=== PATIENT | female | born 1935 | race Caucasian/White ===

== ENCOUNTER → 2016-10-21 | Outpatient (CLI) | payer MEDICARE, OTHER ==
--- NOTE | 2016-10-21 17:46 | RADRPT ---
PROCEDURE: XR pelvis/left hip. CLINICAL INDICATION: Hip pain TECHNIQUE: AP pelvis/lateral left hip view available for review. COMPARISON: None available FINDINGS: The osseous structures are normal in mineralization, architecture and alignment. No fractures are i dentified. No osseous lesions are identified. The joints are unremarkable. The sacroiliac joints a re unremarkable The soft tissues are unremarkable. IMPRESSION: Unremarkable examination RPTAT: [facility] .Milan Power MD, MD Date Time Electronically viewed and signed by .Milan Power MD, on 10/21/2016 17:46 .B/
--- NOTE | 2016-10-22 07:28 | HKNOTE ---
DATE OF SERVICE: 10/21/2016 MAIN COMPLAINT: Pain in the left hip. HISTORY OF MAIN COMPLAINT: The patient is an 81-year-old female who complains of pain in her left b uttock which has been present for about 2 weeks. She fell in her back yard landing on her left side . She does not have any history of problems with her lower back. The pain does not seem to be getting better. She does not have a history of problems with her lower back. PRESENT COMPLAINTS: The pain is in the left buttock and in the midline of the lumbar spine of the l ower back. No radiation of pain down her legs. The pain is described as moderate. The pain is agg ravated by walking and stair climbing. She has mild pain at rest. The patient has been taking Alev e or Motrin for the pain which has helped somewhat. She has no numbness or tingling in her legs. S he does not use a walking aid. She can walk about 3 blocks without stopping. PAST SURGICAL HISTORY: Part of the colon was removed at the [facility] 10 years ago. PAST MEDICAL HISTORY: Negative. DRUG ALLERGIES: NONE. MEDICATIONS: 1. ____ 1 daily. 2. Aricept 1 daily. PHYSICAL EXAMINATION: GENERAL: The patient is a remarkably youthful 81-year-old female. She walks without a walking aid. She comes in with her and son. VITAL SIGNS: Height 5 feet 2 inches, weight 135 pounds, blood pressure 137/90, temperature 98.6. BACK: Dynamic pain assessment reveals a pain free range of motion in flexion, extension, lateral be nding, and rotation. Inspection of the spine reveals no list. There is no lumbar paraspinal muscle s pasm. The pelvis is level. Facet stress test is negative bilaterally. Palpation of the spine demonst rates no tenderness of the spinous processes, facet joints, sacroiliac joint, sciatic notch, or post erior thigh. Pain in the lower back at the limits of motion. LEFT HIP: A full range of motion without pain. IMAGING: Plain x-rays of her pelvis and left hip obtained today at [facility] were reviewed (2 views). These do not show any abnormalities in the hip joint. Minimal arthritis . DIAGNOSIS: Low back pain following a fall. MANAGEMENT: The patient was given a prescription for Naprosyn, Flexeril, and [place]. She is advised to discontinue all other anti-inflammatory medications. If she still has pain in 2 weeks' time, nicolasa carter will call. My lens assistant, Shama, will order an MRI scan of the lumbar spine, and she will be seen again thereafter for reevaluation. Dictated By: CRUZ STEELE/MARYLOU Conf#: [id number] DID#: [id number]
== END | disposition home or self-care (01) ==
LOC: HKI 14:55
DX: M25.552 Pain in left hip (principal); M54.5 Low back pain
CPT/HCPCS: 73502; G0463